=== PATIENT | male | born 1995 | race Two or more races ===

== ENCOUNTER 2018-01-15 09:03 | Day surgery (SDC) | payer OTHER ==
[2018-01-13 12:33] LABS: Urine Bacteria NONE SEEN /hpf (None Seen); Urine Blood Negative /uL (Negative); Urine Mucus FEW (None Seen); Urine WBC 1 /hpf (0 - 3)
[2018-01-13 12:37] LABS: Basophils # (auto) 0 uL; Basophils % (auto) 0.2 % (0.0-2.0); Eosinophils # (auto) 0.1 uL; Eosinophils % (auto) 0.7 % (0.0-7.0); Hematocrit 47.2 % (41.0-53.0); Hemoglobin 15.4 g/dL (13.5-17.5); Lymphocytes # (auto) 1.3 uL; Lymphocytes % (auto) 8.2 % (10.0-50.0); Mean Corpuscular Hemoglobin 30.9 pg (28.0-32.0); Mean Corpuscular Hgb Conc. 32.7 g/dL (32.0-36.0); Mean Corpuscular Volume 94.5 fL (80.0-100.0); Monocytes # (auto) 0.9 uL; Monocytes % (auto) 5.5 % (0.0-12.0); Neutrophils # (auto) 13.3 uL; Neutrophils % (auto) 85.4 % (37.0-80.0); Platelet Count (auto) 324 10^3/uL (140-450); Red Blood Cells 4.99 10^6/uL (4.5-5.90); Red Cell Distribution Width 14.3 % (11.8-14.3); White Blood Cell 15.6 10^3/uL (4.4-10.8)
[2018-01-13 12:47] LABS: Albumin 4.3 g/dL (3.4-5.0); Bilirubin, Total 2.8 mg/dL (0.2-1.0); Calcium 8.9 mg/dL (8.5-10.1)
[2018-01-13 13:04] LABS: INR 0.98 (0.9-1.15); Partial Thromboplastin Time 23.8 sec (22.64-33.71); Prothrombin Time 10.7 sec (9.37-12.3)
[~2018-01-15] VITALS: Ht 167.6 cm; Wt 63.5 kg
[2018-01-15] MEDS ORDERED: SUCCINYLCHOLINE CHLORIDE 20 MG/ML 10ML VIAL IV ONE (11:34)
[2018-01-15] MEDS ORDERED: BACITRACIN INJ 50000 UNIT VIAL ONE (11:36)
[2018-01-15] MEDS ORDERED: BUPIVACAINE 0.25% INJ 50ML VIAL ONE (11:36)
[2018-01-15] MEDS ORDERED: MIDAZOLAM HCL 1MG/1ML-2 ML VIAL ONE (11:37)
[2018-01-15] MEDS ORDERED: LIDOCAINE HCL 2% TOP JELLY 5ML TOP ONE (11:38)
[2018-01-15] MEDS ORDERED: PROPOFOL 10 MG/ML 20 ML IV ONE ×2 (11:38→11:45)
[2018-01-15] MEDS ORDERED: BUPIVACAINE 0.75% INJ 10ML MPV SDV IJ ONE ×2 (11:41→12:41)
[2018-01-15] MEDS ORDERED: ceFAZolin 1GM/50ML 50 ML IV ONE (11:43)
[2018-01-15] MEDS ORDERED: DEXAMETHASONE SOD PHOS 10MG/1ML VIAL INJ ONE (12:01)
[2018-01-15] MEDS ORDERED: fentaNYL CITRATE 100 MCG/2 ML VL ONE (12:02)
[2018-01-15] MEDS ORDERED: MORPHINE SULFATE 4 MG/ML SYR/VIAL IV PRN (12:30)
[2018-01-15] MEDS ORDERED: ONDANSETRON HCL 4 MG/2 ML VIAL IV ONE (12:30)
[2018-01-15] MEDS ORDERED: NALOXONE HCL 0.4 MG/ML VIAL IV PRN (12:30)
[2018-01-15] MEDS ORDERED: GLYCOPYRROLATE 0.2 MG/ML 1ML VIAL ONE (12:46)
[2018-01-15] MEDS ORDERED: NEOSTIGMINE 1 MG/ML INJ (10mg/10ML VIAL) ONE (12:46)
[2018-01-15 13:54] VITALS: BP 122/79
== END 2018-01-15 14:00 | disposition home or self-care (01) ==
LOC: SUR 09:03
PROVIDERS: ATTEND Podiatrist Foot & Ankle Surgery
DX: M20.12 Hallux valgus (acquired), left foot (principal); M21.622 Bunionette of left foot; F17.210 Nicotine dependence, cigarettes, uncomplicated
CPT/HCPCS: 28110; 28296; 36415; 73620; 80053; 81001; 85025; 85610; 85730; C1713; C1769; J0330; J0690; J1100; J2250; J2704; J3010; J3490

== ENCOUNTER 2018-04-09 07:07 | Day surgery (SDC) | payer OTHER ==
[2018-04-07 16:22] LABS: Basophils # (auto) 0 uL; Basophils % (auto) 0.6 % (0.0-2.0); Eosinophils # (auto) 0.2 uL; Eosinophils % (auto) 3.6 % (0.0-7.0); Hematocrit 45.5 % (41.0-53.0); Hemoglobin 15.4 g/dL (13.5-17.5); Lymphocytes # (auto) 1.8 uL; Lymphocytes % (auto) 28.4 % (10.0-50.0); Mean Corpuscular Hemoglobin 31.6 pg (28.0-32.0); Mean Corpuscular Volume 93.1 fL (80.0-100.0); Monocytes # (auto) 0.6 uL; Monocytes % (auto) 9.2 % (0.0-12.0); Neutrophils # (auto) 3.6 uL; Neutrophils % (auto) 58.2 % (37.0-80.0); Platelet Count (auto) 373 10^3/uL (140-450); Red Blood Cells 4.89 10^6/uL (4.5-5.90); Red Cell Distribution Width 13.7 % (11.8-14.3); Urine Bacteria NONE SEEN /hpf (None Seen); Urine Blood Negative /uL (Negative); Urine Specific Gravity 1.022 (1.001-1.035); Urine Sperm PRESENT /hpf (None Seen); Urine WBC <1 /hpf (0 - 3); White Blood Cell 6.2 10^3/uL (4.4-10.8)
[2018-04-07 16:26] LABS: Albumin 4.2 g/dL (3.4-5.0); BUN/Creatinine Ratio 10.3; Bilirubin, Total 0.9 mg/dL (0.2-1.0); Potassium 3.9 mmol/L (3.5-5.1); Total Protein 7.6 g/dL (6.4-8.2)
[2018-04-07 16:27] LABS: INR 0.95 (0.9-1.15); Partial Thromboplastin Time 24.3 sec (23.78-33.04); Prothrombin Time 10.2 sec (9.27-12.13)
[~2018-04-09] VITALS: Ht 167.6 cm; Wt 63.5 kg
[2018-04-09] MEDS ORDERED: ceFAZolin 1GM/50ML 50 ML IV ONE (07:45)
[2018-04-09] MEDS ORDERED: BUPIVACAINE 0.25% INJ 50ML VIAL ONE (08:10)
[2018-04-09] MEDS ORDERED: NEOMYCIN-BACITRACIN-POLYM 15GM TOP OINT TOP ONE (08:10)
[2018-04-09] MEDS ORDERED: MEPERIDINE HCL (50 MG/ML) 1 ML VIAL ONE (08:26)
[2018-04-09] MEDS ORDERED: MIDAZOLAM HCL 1MG/1ML-2 ML VIAL ONE (08:26)
[2018-04-09] MEDS ORDERED: fentaNYL CITRATE 100 MCG/2 ML VL ONE (08:26)
[2018-04-09] MEDS ORDERED: KETOROLAC TROMETH 30 MG/ML 1ML VIAL IV ONE ×2 (08:29→09:00)
[2018-04-09] MEDS ORDERED: DEXAMETHASONE SOD PHOS 10MG/1ML VIAL INJ ONE (08:39)
[2018-04-09] MEDS ORDERED: PROPOFOL 10 MG/ML 20 ML IV ONE (08:39)
[2018-04-09] MEDS ORDERED: fentaNYL CITRATE 100 MCG/2 ML VL IV ONE (09:00)
[2018-04-09] MEDS ORDERED: LABETALOL HCL 5 MG/ML 4ML SYRINGE IV PRN (09:00)
[2018-04-09] MEDS ORDERED: MORPHINE SULF INJ 2 MG/ML SYRINGE 1ML IV PRN (09:00)
[2018-04-09] MEDS ORDERED: HYDROmorphone HCL 2 MG/ML VL IV PRN (09:00)
[2018-04-09] MEDS ORDERED: ONDANSETRON HCL 4 MG/2 ML VIAL IV ONE (09:00)
[2018-04-09] MEDS ORDERED: ePHEDrine SULFATE 50 MG/ML AMP IV PRN (09:00)
[2018-04-09] MEDS ORDERED: MORPHINE SULF INJ 2 MG/ML SYRINGE 1ML IV ONE (10:00)
[2018-04-09 10:13] VITALS: BP 116/73
== END 2018-04-09 09:15 | disposition home or self-care (01) ==
LOC: SUR 07:07
PROVIDERS: ATTEND Podiatrist Foot & Ankle Surgery
DX: M20.11 Hallux valgus (acquired), right foot (principal); M21.621 Bunionette of right foot; F17.210 Nicotine dependence, cigarettes, uncomplicated
CPT/HCPCS: 28110; 28296; 36415; 73620; 80053; 81001; 85025; 85610; 85730; C1713; C1769; J0690; J1100; J1885; J2175; J2250; J2704; J3010; J3490; L3260; Q4137